=== PATIENT | female | born 1970 ===

== ENCOUNTER → 2024-09-09 08:00 | Outpatient (BNV) | payer SELFPAY | PROVIDERS: Visit Provider Internal Medicine | DX: I47.10 Supraventricular tachycardia, unspecified (principal) | CPT/HCPCS: 93248 ==

== ENCOUNTER → 2024-09-09 11:00 | Outpatient (REF) | payer OTHER, SELFPAY | LOC: HO.CARD 11:00 | PROVIDERS: Visit Provider Internal Medicine | DX: R00.2 Palpitations (principal) | CPT/HCPCS: 93246 ==